=== PATIENT | male | born 1930 | race Caucasian/White ===

== ENCOUNTER 2019-04-14 06:33 | Emergency (ER) | payer MEDICARE, OTHER ==
[~2019-04-14] VITALS: Ht 182.9 cm; Wt 93.0 kg
[2019-04-14] MEDS ORDERED: NS IV 500 ML 500 ML IV ONE (06:44)
--- NOTE | 2019-04-14 07:17 | Diagnostic Imaging Report ---
INDICATION: Weak x2 days. TECHNIQUE: Single view chest 6:39 AM. CORRELATION STUDY: None FINDINGS: Heart size enlarged, mediastinum prominent. Vascularity slightly increased. Patchy areas of atelectasis or infiltrate at the right lung base and perihilar region. IMPRESSION: 1. Cardiac enlargement with borderline vasculature. May be patchy area of asymmetric infiltrate present in the right perihilar and basilar region. Followup imaging as clinically warranted. Dictated by: Dictated on workstation # [id number]
--- NOTE | 2019-04-14 07:29 | ED General ---
General Chief Complaint: Neurological Problems Stated Complaint: WEAKNESS Nursing Triage Note: PT. C/O BEING WEEK. HIS HOME HEALTH BRAND LEAD GAVE HIM A BATH YESTERDAY AND THE PATIENT STATED HE WAS SO WEEK THAT SHE HAD DIFFICULTY GETTING HIM UP FOR THE BATH. PT. HAS A HISTORY OF A CVA IN THE PAST. Nursing Sepsis Screen: No Definite Risk History of Present Illness Date Seen by Provider: Apr 14, 2019 Time Seen by Provider: 06:20 Initial Comments The patient is an 89-year-old male with a history of prior cerebrovascular accident on a daily baby aspirin and with some residual right-sided weakness, ambulating at baseline with a walker. He and his family deny any other significant medical history and he denies any history of hypertension, hyperlipidemia, diabetes, coronary artery disease, chronic lung disease. He presents with concern for acute onset of generalized weakness/fatigue with onset over the last 2 days. Patient has been so weak that he has been unable to get up out of his chair to do any ADL activities without maximal assist. Caregiver came to his home yesterday to give him a bath and was barely able to get him to the restroom. This is unusual for the patient as he is usually up and about with his walker with no difficulty. There have been no falls or injuries. The patient is pleasantly and appropriately interactive and alert and oriented 4 and in absolutely no distress. He answers questions easily and fluently. He denies any complaints aside from the generalized weakness. He specifically denies fevers, nausea or vomiting, headache, new focal weakness/numbness/tingling (does have ri ght sided weakness which is chronically present, particularly to his right leg), neck stiffness, vision changes, shortness of breath or chest pain either now or at any time since onset of symptoms, abdominal pain, flank pain, back pain, dysuria or hematuria, changes in bowel habits. Allergies and Home Medications Allergies Uncoded Allergies: PENICILLIN (Allergy, Mild, HIVES, 04/14/19) Patient Home Medication List Home Medication List Reviewed: Yes Review of Systems Review of Systems Constitutional: see HPI All Other Systems Reviewed Negative Unless Noted: Yes Past Lyxholt-Tviuvl-Idvohz Hx Past Med/Social Hx: Reviewed Nursing Past Med/Soc Hx Patient Social History Recent Foreign Travel: No Contact w/Someone Who Travel: No Recent Infectious Disease Expo: No Physical Abuse: No Sexual Abuse: No Mistreated: No Fear: No Family Medical History Reviewed Nursing Family Hx Physical Exam Vital Signs Vital Signs - First Documented 04/14/19 04/14/19 06:33 07:54 Temp 97.5 Pulse 60 Resp 18 B/P (MAP) 169/77 (107) Pulse Ox 95 O2 Delivery Room Air Capillary Refill : Less Than 3 Seconds Height, Weight, BMI Height: 6'" Weight: 205lbs. oz. 92.066126pt; BMI Method:Stated General Appearance: No Apparent Distress Comments This is a very elderly male appearing nontoxic and in no acute distress. He is pleasantly and appropriately interactive and alert and oriented 4. Head is normocephalic and atraumatic. Neck is supple and nontender. Oropharynx is moist. Lungs are clear to auscultation at all stations. There is normal S1 and S2 without rubs or gallops and capillary refill is appropriate, less 2 seconds globally. There is 2+ pitting edema to the distal bilateral lower extremities symmetrically, below the level of the mid shins. Family states this is slightly worse than usual. Abdomen is soft, nontender and nondistended. Skin is warm and dry without cyanosis or clubbing. Psychiatrically, the patient demonstrates appropriate mood and affect and is alert. From a neurologic standpoint, cranial nerves II through XII are intact and there are no lateralizing cranial nerve deficits noted. Speech is normal. Language is normal. Coordination is normal. There is no dysmetria with [id number]-[id number] bilaterally. Strength is 5 out of 5 at all joints of left upper and left lower extremities. Strength is 4 out of 5 at all joints of right upper extremity and 3 out of 5 at all joints of right lower extremity patient reports his strength on the right is about baseline for him. Sensation is intact to light touch in all 4 ext remities. Ambulation testing is deferred. Focused Exam Lactate Level 04/14/19 08:00: Lactic Acid Level Laboratory Tests Test 04/14/19 08:00 Progress/Results/Core Measures Suspected Sepsis Recent Fever Within 48 Hours: No Infection Criteria Present: None New/Unexplained Altered Menta: No Sepsis Screen: No Definite Risk SIRS Temperature:97.5 Pulse: 60 Respiratory Rate: 18 Laboratory Tests 04/14/19 07:12: White Blood Count 7.8 Blood Pressure 169 /77 Mean: 107 04/14/19 08:00: Laboratory Tests 04/14/19 07:12: Creatinine 0.96, INR Comment 1.1, Platelet Count 201, Total Bilirubin 0.6 Results/Orders Lab Results Laboratory Tests Test 04/14/19 07:12 04/14/19 08:00 Range/Units White Blood Count 7.8 4.3-11.0 10^3/uL Red Blood Count 4.45 4.35-5.85 10^6/uL Hemoglobin 14.2 13.3-17.7 G/DL Hematocrit 42 40-54 % Mean Corpuscular Volume 94 80-99 FL Mean Corpuscular Hemoglobin 32 25-34 PG Mean Corpuscular Hemoglobin Concent 34 32-36 G/DL Red Cell Distribution Width 14.3 10.0-14.5 % Platelet Count 201 130-400 10^3/uL Mean Platelet Volume 10.5 H 7.4-10.4 FL Neutrophils (%) (Auto) 50 42-75 % Lymphocytes (%) (Auto) 36 12-44 % Monocytes (%) (Auto) 10 0-12 % Eosinophils (%) (Auto) 4 0-10 % Basophils (%) (Auto) 0 0-10 % Neutrophils # (Auto) 3.9 1.8-7.8 X 10^3 Lymphocytes # (Auto) 2.8 1.0-4.0 X 10^3 Monocytes # (Auto) 0.8 0.0-1.0 X 10^3 Eosinophils # (Auto) 0.3 0.0-0.3 10^3/uL Basophils # (Auto) 0.0 0.0-0.1 10^3/uL Prothrombin Time 14.5 12.2-14.7 SEC INR Comment 1.1 0.8-1.4 Activated Partial Thromboplast Time 35 24-35 SEC Sodium Level 142 135-145 MMOL/L Potassium Level 4.5 3.6-5.0 MMOL/L Chloride Level 103 98-107 MMOL/L Carbon Dioxide Level 28 21-32 MMOL/L Anion Gap 11 5-14 MMOL/L Blood Urea Nitrogen 21 H 7-18 MG/DL Creatinine 0.96 0.60-1.30 MG/DL Estimat Glomerular Filtration Rate > 60 BUN/Creatinine Ratio 22 Glucose Level 114 H 70-105 MG/DL Calcium Level 9.6 8.5-10.1 MG/DL Corrected Calcium 9.4 8.5-10.1 MG/DL Total Bilirubin 0.6 0.1-1.0 MG/DL Aspartate Amino Transf (AST/SGOT) 26 5-34 U/L Alanine Aminotransferase (ALT/SGPT) 19 0-55 U/L Alkaline Phosphatase 49 40-136 U/L Troponin T 28 H <=15 NG/L Pro-B-Type Natriuretic Peptide 1100.0 H <75.0 PG/ML Total Protein 6.8 6.4-8.2 GM/DL Albumin 4.3 3.2-4.5 GM/DL My Orders Orders - MER MENDOZA MD Cbc With Automated Diff (04/14/19 06:44) Comprehensive Metabolic Panel (04/14/19 06:44) Troponin T (04/14/19 06:44) Ekg Tracing (04/14/19 06:44) Chest 1 View Ap/Pa Only (04/14/19 06:44) Probnp Fs (04/14/19 06:44) Protime With Inr (04/14/19 06:44) Partial Thromboplastin Time (04/14/19 06:44) Ua Culture If Indicated (04/14/19 06:44) Ct Head Wo (04/14/19 06:44) Ed Iv/Invasive Line Start (04/14/19 06:44) Ns Iv 500 Ml (Sodium Chloride 0.9%) (04/14/19 06:44) Levofloxacin 750 Mg/150 Ml Iv (Levaquin (04/14/19 08:00) Blood Culture (04/14/19 07:55) Blood Culture (04/14/19 07:55) Sputum Culture (04/14/19 07:58) Urine Culture (04/14/19 07:58) Lactic Acid Analyzer (04/14/19 07:58) Furosemide Injection (Lasix Injection) (04/14/19 08:18) Medications Given in ED Current Medications Medications Dose Ordered Sig/Conchita Route Start Time Stop Time Status Last Admin Dose Admin Levofloxacin/ Dextrose 150 ml @ 100 mls/hr ONCE ONCE IV 04/14/19 08:00 04/14/19 09:29 04/14/19 08:17 100 MLS/HR Sodium Chloride 500 ml @ 0 mls/hr Q0M ONCE IV 04/14/19 06:44 04/14/19 06:46 DC 04/14/19 07:20 0 MLS/HR Vital Signs/I&O 04/14/19 04/14/19 06:33 07:54 Temp 97.5 Pulse 60 53 Resp 18 16 B/P (MAP) 169/77 (107) Pulse Ox 95 O2 Delivery Room Air Room Air Capillary Refill : Less Than 3 Seconds Blood Pressure Mean: 107 Progress Note : Time: 07:36 Progress Note Very elderly male with a prior history of ischemic stroke with residual right-sided weakness, now reporting 2 days of significantly worsened generalized weakness. Unable to perform ADLs at home and be up and about as per usual. Has no complaints and no pain anywhere and afebrile and nonfocal and reassuring clinical examination. Vital signs are appropriate. We will check labs and EKG and chest x-ray and urinalysis and we'll give a small IV fluid bolus and will then reevaluate. Plan for likely admission. Patient would prefer to go to [place] if possible. Update 0730: Patient absolutely, positively and repeatedly refuses to allow us to perform a CT scan of his head which I explained to him and his family is indicated in the setting of his acute on chronic weakness. He states that he does not like to lay down on the CT table. Patient is alert and oriented 4 and not clinically intoxicated and has no history of dementia and is his own guardian and in my opinion does have capacity to make choices regarding refusal of aspects of his recommended care. I counseled the patient and his family that there was a chance for missed diagnosis including intracranial bleed and other significant acute process and the patient understood those risks and agreed to accept them and be wholly and solely responsible for them in their entirety. Update 0811: Work up is as noted, general without significant evidence of acute process aside from very mild troponin T elevation without associated chest pain or SOA, with 2 days of symptoms generalized weakness and no EKG changes most likely reflective of demand in the setting of elevated BNP and possible right- sided CAP per CXR (though no leukocytosis and no other elements of history or exam consistent with PNA). Will draw cultures and lactate and will cover with a dose of levofloxacin. Given elevated BNP and peripheral edema and some degree of mild pulmonary congestion on chest x-ray will also diurese gently with a small dose of IV Lasix. As above, patient and family request admission to [facility] and so the patient is graciously accepted in transfer for telemetry admission by Dr. Alfaro at that facility. ECG Comment Sinus rhythm, no acute ST elevation or depression, rate 55, first-degree AV b lock, mild left ventricular conduction delay, W[place] 289, QRS 122, QTC 407, EP interpretation. Prior EKG reviewed and no significant change noted. Diagnostic Imaging Diagonstic Imaging: Xray Comments CHEST 1 VIEW AP/PA ONLY INDICATION: Weak x2 days. TECHNIQUE: Single view chest 6:39 AM. CORRELATION STUDY: None FINDINGS: Heart size enlarged, mediastinum prominent. Vascularity slightly increased. Patchy areas of atelectasis or infiltrate at the right lung base and perihilar region. IMPRESSION: 1. Cardiac enlargement with borderline vasculature. May be patchy area of asymmetric infiltrate present in the right perihilar and basilar region. Followup imaging as clinically warranted. Departure Impression Primary Impression: Generalized weakness Additional Impressions: Acute exacerbation of CHF (congestive heart failure) Qualified Codes: I50.43 - Acute on chronic combined systolic (congestive) and diastolic (congestive) heart failure Community acquired bacterial pneumonia Elevated troponin level Disposition: XFER SHT-TRM HOSP Condition: Improved Transfer Method of Transfer: EMS Departure-Patient Inst. Referrals: SELFMARIANNE MD (PCP/Family) Primary Care Physician MER MENDOZA MD Apr 14, 2019 07:29
[2019-04-14 07:40] LABS: HEMATOCRIT 42 % (40-54); HEMOGLOBIN 14.2 G/DL (13.3-17.7); MEAN CORPUSCULAR HEMOGLOBIN 32 PG (25-34); MEAN CORPUSCULAR HGB CONC 34 G/DL (32-36); MEAN CORPUSCULAR VOLUME 94 FL (80-99); PLATELET COUNT 201 10^3/uL (130-400); RED CELL DISTRIBUTION WIDTH 14.3 % (10.0-14.5); WHITE BLOOD COUNT 7.8 10^3/uL (4.3-11.0)
[2019-04-14 07:41] LABS: BASOPHILS % (AUTO) 0 % (0-10); EOSINOPHILS # (AUTO) 0.3 10^3/uL (0.0-0.3); EOSINOPHILS % (AUTO) 4 % (0-10); LYMPHOCYTES # (AUTO) 2.8 X 10^3 (1.0-4.0); LYMPHOCYTES % (AUTO) 36 % (12-44); MEAN PLATELET VOLUME 10.5 FL (7.4-10.4); MONOCYTES # (AUTO) 0.8 X 10^3 (0.0-1.0); MONOCYTES % (AUTO) 10 % (0-12); NEUTROPHILS # (AUTO) 3.9 X 10^3 (1.8-7.8); NEUTROPHILS % (AUTO) 50 % (42-75)
[2019-04-14 07:42] LABS: INR 1.1 (0.8-1.4); PROTHROMBIN TIME PATIENT 14.5 SEC (12.2-14.7)
[2019-04-14 07:49] LABS: BILIRUBIN,TOTAL 0.6 MG/DL (0.1-1.0); BUN/CREATININE RATIO 22; CALCIUM 9.6 MG/DL (8.5-10.1); CARBON DIOXIDE 28 MMOL/L (21-32); CHLORIDE 103 MMOL/L (98-107); CREATININE SERUM 0.96 MG/DL (0.60-1.30); GFR ESTIMATED > 60; GLUCOSE 114 MG/DL (70-105); POTASSIUM 4.5 MMOL/L (3.6-5.0); SODIUM 142 MMOL/L (135-145)
[2019-04-14 07:50] LABS: ALANINE AMINOTRANSFERASE 19 U/L (0-55); ALBUMIN 4.3 GM/DL (3.2-4.5); ALKALINE PHOSPHATASE 49 U/L (40-136); TOTAL PROTEIN 6.8 GM/DL (6.4-8.2)
[2019-04-14] MEDS ORDERED: LEVOFLOXACIN 750 MG/150 ML IV 150 ML IV ONE (08:00)
[2019-04-14] MEDS ORDERED: FUROSEMIDE 40 MG/4 ML INJ (LASIX) IVP STA (08:18)
[2019-04-14 09:07] LABS: BACTERIA,URINE NEGATIVE /HPF; BILIRUBIN,URINE NEGATIVE (NEGATIVE); CLARITY,URINE CLEAR; COLOR,URINE YELLOW; GLUCOSE, URINE (UA) NEGATIVE (NEGATIVE); KETONES,URINE NEGATIVE (NEGATIVE); LEUKOCYTE ESTERASE ,URINE NEGATIVE (NEGATIVE); NITRITE,URINE NEGATIVE (NEGATIVE); PH,URINE 7.5 (5-9); PROTEIN,URINE NEGATIVE (NEGATIVE); RBC,URINE RARE /HPF; UROBILINOGEN,URINE 0.2 MG/DL (NORMAL); WBC,URINE RARE /HPF
[2019-04-14 09:08] LABS: SQUAMOUS EPITHELIAL CELL,UR RARE /HPF
[2019-04-14 10:13] VITALS: BP 142/73
[2019-04-14 10:46] VITALS: BP 142/73
--- NOTE | 2019-04-14 10:50 | NUR ---
REPORT GIVEN TO ALETHEA UGARTE AT 0903.
== END 2019-04-14 10:50 | disposition short-term general hospital (02) ==
LOC: ER FS 06:40
DX: J15.9 Unspecified bacterial pneumonia (principal); R53.1 Weakness; I50.9 Heart failure, unspecified; R79.89 Other specified abnormal findings of blood chemistry; Z86.73 Personal history of transient ischemic attack (TIA), and cerebral infarction without residual deficits; Z88.0 Allergy status to penicillin
CPT/HCPCS: 36415; 71045; 80053; 81000; 83605; 83880; 84484; 85025; 85610; 85730; 87040; 87088; 93005; 96361; 96374; 96375